=== PATIENT | female | born 1955 | race African-American/Black ===

== ENCOUNTER 2023-01-07 13:34 | Inpatient (IN) | payer OTHER ==
[2023-01-07 14:24] VITALS: BMI 21.2
[2023-01-07] MEDS ORDERED: NALOXONE HCL 0.4 MG/ML VIAL IM PRN (15:36)
[2023-01-07] MEDS ORDERED: ACETAMINOPHEN 325 MG TABLET (FP) PO PRN (15:36)
[2023-01-07] MEDS ORDERED: IBUPROFEN 400 MG TABLET (FP) PO PRN (15:36)
[2023-01-07] MEDS ORDERED: NALOXONE HCL (KLOXXADO) 8 MG SPRAY NS PRN (15:36)
[2023-01-07] MEDS ORDERED: MAGNESIUM HYDROX 2400MG/30ML ORAL SUSPENSION 30 ML CUP PO PRN (15:36)
[2023-01-07] MEDS ORDERED: BENZONATATE 200 MG CAPSULE PO PRN (15:36)
[2023-01-07] MEDS ORDERED: guaiFENesin 600 MG TABLET.ER (FP) PO PRN (15:36)
[2023-01-07] MEDS ORDERED: MAG HYDROX/AL HYDROX/SIMETH 30 ML UNIT-DOSE CUP PO PRN (15:36)
[2023-01-07] MEDS ORDERED: LOPERAMIDE HCL 2 MG CAPSULE PO PRN (15:36)
[2023-01-07] MEDS ORDERED: ONDANSETRON *ODT* 4 MG TABLET SL PRN (15:36)
[2023-01-07] MEDS ORDERED: BISMUTH SUBSALICYLATE 262 MG/15 ML BTL PO PRN (15:36)
[2023-01-07] MEDS ORDERED: POLYETHYLENE GLYCOL (HEALTHYLAX) 3350 17 GM PACKET PO PRN (15:36)
[2023-01-07] MEDS ORDERED: BENZOCAINE/MENTHOL (CHLORASEPTIC ) LOZENGE MM PRN (15:36)
[2023-01-07] MEDS: THIAMINE HCL 100 MG TABLET (FP) PO SCH (22:00)
[2023-01-07] MEDS: MELATONIN 5 MG TABLETS PO SCH (22:01)
[2023-01-07] MEDS: IBUPROFEN 600 MG TABLET (FP) PO PRN (22:02)
[2023-01-07] MEDS: CYCLOPENTOLATE 1% OS SCH (22:03)
[2023-01-07] MEDS: EYE OS SCH (22:03)
[2023-01-08] MEDS: CYCLOPENTOLATE 1% OS SCH ×3 (06:22→22:16)
[2023-01-08] MEDS: EYE OS SCH ×3 (06:22→22:16)
[2023-01-08] MEDS: COBICISTAT PO SCH ×2 (08:15→08:21)
[2023-01-08] MEDS: DARUNAVIR PO SCH ×2 (08:15→08:21)
[2023-01-08] MEDS ORDERED: PATIENT'S OWN MEDICATION (NON-FORMULARY) (Dolutegravir Sodium [Tivicay] 50 MG) PO SCH ×2 (08:42→10:46)
[2023-01-08] MEDS: PRENATAL VITAMINS W/ FOLIC ACID TABLET (FP) PO SCH (09:10)
[2023-01-08] MEDS ORDERED: BUPRENORPHINE HCL 150 MCG, BUPRENORPHINE HCL 75 MCG BC ONE (09:25)
[2023-01-08] MEDS ORDERED: BUPRENORPHINE HCL 150 MCG, BUPRENORPHINE HCL 75 MCG BC PRN (09:25)
[2023-01-08] MEDS ORDERED: cloNIDine HCL 0.1 MG TABLET PO ONE (09:25)
[2023-01-08] MEDS ORDERED: diazePAM 5 MG TABLET PO PRN (09:25)
[2023-01-08] MEDS ORDERED: (Dolutegravir Sodium [Tivicay] 50 MG Tablet) PO SCH (10:00)
[2023-01-08 10:23] LABS: POTASSIUM 4.4 mmol/L (3.5-5.1)
[2023-01-08 10:25] LABS: MCH 24.1 pg (25.7-33.7); MCHC 32.4 g/dl (32.0-36.0); MEAN CELL VOLUME 74.4 fl (80-96); MEAN PLT VOLUME 8.6 fl (7.5-11.1); PLATELET COUNT 302 10^3/uL (134-434); RBC 4.57 M/mm3 (3.60-5.2); RDW 16.1 % (11.6-15.6); WHITE BLOOD COUNT 9.2 K/mm3 (4.0-10.0)
[2023-01-08 10:27] LABS: ALBUMIN 3.2 g/dl (3.4-5.0); CALCIUM 9.9 mg/dL (8.5-10.1)
[2023-01-08 10:28] LABS: BLOOD UREA NITROGEN 16.6 mg/dL (7-18)
[2023-01-08 10:30] LABS: CREATININE 1.2 mg/dL (0.55-1.3)
[2023-01-08 10:31] LABS: BILIRUBIN,TOTAL 0.4 mg/dL (0.2-1); TOT PROT 8.6 g/dl (6.4-8.2)
[2023-01-08] MEDS ORDERED: cloNIDine HCL 0.1 MG TABLET PO PRN (13:26)
[2023-01-08] MEDS: ALBUTEROL SO4 HFA INHALER IH PRN (14:49)
[2023-01-08] MEDS: IBUPROFEN 600 MG TABLET (FP) PO PRN (18:14)
[2023-01-08] MEDS: THIAMINE HCL 100 MG TABLET (FP) PO SCH (22:13)
[2023-01-08] MEDS: MELATONIN 5 MG TABLETS PO SCH (22:13)
[2023-01-09] MEDS ORDERED: BUPRENORPHINE HCL 150 MCG, BUPRENORPHINE HCL 75 MCG BC PRN
[2023-01-09] MEDS: IBUPROFEN 600 MG TABLET (FP) PO PRN ×2 (01:25→10:31)
[2023-01-09] MEDS ORDERED: BUPRENORPHINE HCL 150 MCG, BUPRENORPHINE HCL 75 MCG BC SCH (06:00)
[2023-01-09] MEDS: EYE OS SCH ×2 (06:27→14:54)
[2023-01-09] MEDS: CYCLOPENTOLATE 1% OS SCH ×2 (06:27→14:54)
[2023-01-09] MEDS ORDERED: PATIENT'S OWN MEDICATION (NON-FORMULARY) (Dolutegravir Sodium [Tivicay] 50 MG) PO SCH (08:00)
[2023-01-09] MEDS: DARUNAVIR PO SCH (08:00)
[2023-01-09] MEDS: COBICISTAT PO SCH (08:00)
[2023-01-09] MEDS: PRENATAL VITAMINS W/ FOLIC ACID TABLET (FP) PO SCH (10:21)
[2023-01-09] MEDS: ALBUTEROL SO4 HFA INHALER IH PRN (10:31)
[2023-01-09 18:00] VITALS: BP 157/102; PULSE 107; RESP 18; TEMP 98.2
[2023-01-10] MEDS ORDERED: BUPRENORPHINE HCL 450 MCG FILM BC SCH (06:00)
[2023-01-11] MEDS ORDERED: BUPRENORPHINE/NALOXONE 4 MG/1 MG FILM PACKET SL SCH (06:00)
[2023-01-12] MEDS ORDERED: BUPRENORPHINE/NALOXONE 8 MG/2 MG FILM PACKET SL ONE (06:00)
== END 2023-01-09 17:51 | disposition left against medical advice (07) | DRG 894 ==
LOC: EDSEX 13:34 → YASAS 13:34 → Y3N 15:49
PROVIDERS: ADMIT Allergy & Immunology; ATTEND Surgery
PROC: HZ2ZZZZ Detoxification Services for Substance Abuse Treatment (ICD-10-PCS; principal; 2023-01-07)
DX: F11.23 Opioid dependence with withdrawal (principal); F14.20 Cocaine dependence, uncomplicated; F10.230 Alcohol dependence with withdrawal, uncomplicated; Z21 Asymptomatic human immunodeficiency virus [HIV] infection status; J45.909 Unspecified asthma, uncomplicated; H57.89 Other specified disorders of eye and adnexa; Z87.891 Personal history of nicotine dependence; Z99.89 Dependence on other enabling machines and devices
CPT/HCPCS: 36415; 80053; 85027; 86780; 87635; 93005; 93010; Q0162